=== PATIENT | male | born 1970 | race Caucasian/White ===

== ENCOUNTER 2020-09-10 13:32 | Emergency (ER) | payer OTHER ==
[2020-09-10 13:41] VITALS: BP 130/73; PULSE 79; TEMP 98.1; BMI 26.4
[2020-09-10] MEDS ORDERED: LIDOCAINE HCL 1%, 10 MG/ML (20ML VIAL) ONE (13:51)
== END 2020-09-10 15:13 | disposition home or self-care (01) ==
LOC: FER 13:32
DX: S62.356A Nondisplaced fracture of shaft of fifth metacarpal bone, right hand, initial encounter for closed fracture (principal); S61.441A Puncture wound with foreign body of right hand, initial encounter; W22.8XXA Striking against or struck by other objects, initial encounter
CPT/HCPCS: 73130-TC-RT-FY; 99283-25

== ENCOUNTER 2023-04-01 06:37 | Emergency (ER) | payer BC, OTHER ==
[2023-04-01 06:49] VITALS: BP 130/87; PULSE 60; RESP 16; TEMP 97.7; BMI 26.6
== END 2023-04-01 07:48 | disposition home or self-care (01) ==
LOC: FER 06:37
PROC: 0HCGXZZ Extirpation of Matter from Left Hand Skin, External Approach (ICD-10-PCS; principal; 2023-04-01)
DX: S60.451A Superficial foreign body of left index finger, initial encounter (principal); W45.8XXA Other foreign body or object entering through skin, initial encounter
CPT/HCPCS: 99283-25